=== PATIENT | male | born 1960 | race Caucasian/White ===

== ENCOUNTER 2021-11-30 17:06 | Emergency (ER) | payer MEDICARE, MEDICAID ==
[~2021-11-30] VITALS: Ht 165 cm; Wt 120.0 kg
[2021-11-30 17:10] VITALS: BP 130/112
[2021-11-30] MEDS ORDERED: ASPIRIN 81 MG CHEW (CHILDREN'S ASA) PO ONE (17:30)
--- NOTE | 2021-11-30 17:31 | ED Cardiac General ---
History of Present Illness General Chief Complaint: Cardiac/General Problems Stated Complaint: POSS HEART ATTACK Nursing Triage Note: SENT HERE FROM 'S OFFICE IN [place] CHEST PAIN SUNDAY. SEEN BY YESTERDAY AND BLOOD DRAWN. TODAY WAS TOLD TO COME TO THE ER DUE TO HIS TROPONIN BEING HIGH. Source: patient Exam Limitations: no limitations History of Present Illness Date Seen by Provider: Nov 30, 2021 Time Seen by Provider: 17:28 Initial Comments Patient is a 60-year-old male with a history of coronary artery disease, hypertension, diabetes who presents ED for evaluation for abnormal troponin. Patient was sent over from his primary care physician for troponin of over 4000. Cardiology was consulted Dr. Link. Patient states he had chest pressure on Sunday lasted for about 2 to 3 hours. That pain has not improved. Sunday he felt tired and fatigued but had no issues or concerns yesterday. Went to his primary care physician earlier this week had abnormal troponin around 4000. Patient has no current complaints. Denies of any current chest pain, shortness of breath, cough, nausea vomiting, diarrhea fever, chills.. Patient states he has been exerting himself without any pain or discomfort Allergies and Home Medications Allergies Coded Allergies: Sulfa (Sulfonamide Antibiotics) (Verified Allergy, Severe, RASH, 11/30/21) Patient Home Medication List Home Medication List Reviewed: Yes Review of Systems Review of Systems Constitutional: No chills, No diaphoresis, No fever, No malaise, No weakness EENTM: No Double Vision, No Eye Pain Respiratory: Denies Cough, Denies Orthopnea Cardiovascular: Chest Pain; Denies Edema Gastrointestinal: Denies Abdominal Pain, Denies Diarrhea, Denies Nausea, Denies Vomiting Genitourinary: Denies Burning, Denies Discharge Musculoskeletal: No back pain, No joint pain Skin: No change in color, No change in hair/nails All Other Systems Reviewed Negative Unless Noted: Yes Past Lxmdlpg-Byoqwu-Oczrin Hx Patient Social History Smoking Status: Never a Smoker Substance use?: No Alcohol Use?: No Physical Exam Vital Signs Vital Signs - First Documented 11/30/21 17:10 Temp 36.3 Pulse 83 Resp 16 B/P (MAP) 130/112 (118) Pulse Ox 97 O2 Delivery Room Air Capillary Refill : Less Than 3 Seconds Height, Weight, BMI Height: '" Weight: lbs. oz. kg; 44.00 BMI Method: General Appearance: No Apparent Distress, WD/WN HEENT: PERRL/EOMI, TMs Normal, Normal ENT Inspection, Pharynx Normal Neck: Full Range of Motion, Normal Inspection, Non Tender, Supple Respiratory: Chest Non Tender, Lungs Clear, Normal Breath Sounds, No Accessory Muscle Use, No Respiratory Distress Cardiovascular: Regular Rate, Rhythm, No Edema, No Gallop, No JVD Gastrointestinal: Normal Bowel Sounds, No Organomegaly, No Pulsatile Mass, Non Tender Extremity: Normal Capillary Refill, Normal Inspection, Normal Range of Motion, Non Tender Skin: Normal Color, Warm/Dry Progress/Results/Core Measures Results/Orders Lab Results Laboratory Tests Test 11/30/21 17:32 Range/Units White Blood Count 10.6 4.3-11.0 10^3/uL Red Blood Count 5.63 H 4.30-5.52 10^6/uL Hemoglobin 14.9 13.3-17.7 g/dL Hematocrit 47 40-54 % Mean Corpuscular Volume 83 80-99 fL Mean Corpuscular Hemoglobin 27 25-34 pg Mean Corpuscular Hemoglobin Concent 32 32-36 g/dL Red Cell Distribution Width 15.3 H 10.0-14.5 % Platelet Count 326 130-400 10^3/uL Mean Platelet Volume 10.4 9.0-12.2 fL Immature Granulocyte % (Auto) 0 % Neutrophils (%) (Auto) 61 42-75 % Lymphocytes (%) (Auto) 26 12-44 % Monocytes (%) (Auto) 12 0-12 % Eosinophils (%) (Auto) 1 0-10 % Basophils (%) (Auto) 0 0-10 % Neutrophils # (Auto) 6.5 1.8-7.8 10^3/uL Lymphocytes # (Auto) 2.8 1.0-4.0 10^3/uL Monocytes # (Auto) 1.2 H 0.0-1.0 10^3/uL Eosinophils # (Auto) 0.1 0.0-0.3 10^3/uL Basophils # (Auto) 0.0 0.0-0.1 10^3/uL Immature Granulocyte # (Auto) 0.0 0.0-0.1 10^3/uL Prothrombin Time 13.6 12.2-14.7 SEC INR Comment 1.0 0.8-1.4 Activated Partial Thromboplast Time 26 24-35 SEC Sodium Level 137 135-145 MMOL/L Potassium Level 4.0 3.6-5.0 MMOL/L Chloride Level 105 98-107 MMOL/L Carbon Dioxide Level 21 21-32 MMOL/L Anion Gap 11 5-14 MMOL/L Blood Urea Nitrogen 20 H 7-18 MG/DL Creatinine 0.95 0.60-1.30 MG/DL Estimat Glomerular Filtration Rate 92 BUN/Creatinine Ratio 21 Glucose Level 142 H 70-105 MG/DL Calcium Level 9.2 8.5-10.1 MG/DL Corrected Calcium 9.0 8.5-10.1 MG/DL Magnesium Level 2.1 1.6-2.4 MG/DL Total Bilirubin 1.1 H 0.1-1.0 MG/DL Aspartate Amino Transf (AST/SGOT) 17 5-34 U/L Alanine Aminotransferase (ALT/SGPT) 22 0-55 U/L Alkaline Phosphatase 53 40-136 U/L Myoglobin 34.6 10.0-92.0 NG/ML Troponin I 0.079 H <0.028 NG/ML B-Type Natriuretic Peptide 21.3 <100.0 PG/ML Total Protein 7.6 6.4-8.2 GM/DL Albumin 4.2 3.2-4.5 GM/DL My Orders Orders - DANIEL RANGEL PA Cbc With Automated Diff (11/30/21 17:27) Magnesium (11/30/21 17:27) Chest 1 View, Ap/Pa Only (11/30/21 17:27) Comprehensive Metabolic Panel (11/30/21 17:27) Myoglobin Serum (11/30/21 17:27) Protime With Inr (11/30/21 17:27) Partial Thromboplastin Time (11/30/21 17:27) Ed Iv/Invasive Line Start (11/30/21 17:27) Bnp Bosque (11/30/21 17:27) Troponin I Bosque (11/30/21 17:27) Aspirin Chewable Tablet (Baby Aspirin Ch (11/30/21 17:30) Medications Given in ED Current Medications Medications Dose Ordered Sig/Miryam Route Start Time Stop Time Status Last Admin Dose Admin Aspirin 324 mg ONCE ONCE PO 11/30/21 17:30 11/30/21 17:31 DC 11/30/21 17:54 243 MG Vital Signs/I&O 11/30/21 11/30/21 17:10 18:35 Temp 36.3 Pulse 83 Resp 16 B/P (MAP) 130/112 (118) Pulse Ox 97 O2 Delivery Room Air Room Air Blood Pressure Mean: 118 Comment Sinus rhythm with frequent supraventricular premature complexes, 86 bpm, QRS duration 92 MS, QTc 377 MS Departure Communication (PCP) Patient with a NSTEMI. EKG without evidence of ST elevation or pression. Troponin 0.79. He has been asymptomatic since Sunday. Discussed patient with cardiology recommend aspirin and Lovenox. Discussed these results with patient. He is requesting to be discharged and refused admission. Discussed with patient likely had a cardiac event and could potentially lead to a larger event resulting in cardiac . Patient acknowledges. Discussed risk of leaving AMA. Patient acknowledges. Concern due to patient current cardiac history that admission and cardiac work-up would need to be warranted. Patient states he will follow-up with his primary care physician. Patient does have sublingual nitro for angina. Patient is currently on Plavix and baby aspirin daily. Currently on atorvastatin and blood pressure medication. Discussed this with and agrees with this plan of action. Patient was discussed with Dr. Link who recommended admission. Patient's had cardiac stents placed by [facility] administrator in [place]. Outpatient follow-up with cardiology Impression Primary Impression: NSTEMI (non-ST elevated myocardial infarction) Disposition: AGAINST MEDICAL ADVICE Condition: Stable/Unchanged Departure-Patient Inst. Decision time for Depature: 18:26 Referrals: [facility]/ZACH NEWSOME MD NO,LOCAL PHYSICIAN (PCP) Primary Care Physician Patient Instructions: Chest Pain (DC) Add. Discharge Instructions: Recommend staying in the hospital. If any worsening symptoms strong recommend return back to ED for further evaluation All discharge instructions reviewed with patient and/or family. Voiced understanding. DANIEL RANGEL Nov 30, 2021 17:31
[2021-11-30 17:42] LABS: BASOPHILS % (AUTO) 0 % (0-10); EOSINOPHILS # (AUTO) 0.1 10^3/uL (0.0-0.3); EOSINOPHILS % (AUTO) 1 % (0-10); HEMATOCRIT 47 % (40-54); HEMOGLOBIN 14.9 g/dL (13.3-17.7); LYMPHOCYTES # (AUTO) 2.8 10^3/uL (1.0-4.0); LYMPHOCYTES % (AUTO) 26 % (12-44); MEAN CORPUSCULAR HEMOGLOBIN 27 pg (25-34); MEAN CORPUSCULAR HGB CONC 32 g/dL (32-36); MEAN CORPUSCULAR VOLUME 83 fL (80-99); MEAN PLATELET VOLUME 10.4 fL (9.0-12.2); MONOCYTES # (AUTO) 1.2 10^3/uL (0.0-1.0); MONOCYTES % (AUTO) 12 % (0-12); NEUTROPHILS # (AUTO) 6.5 10^3/uL (1.8-7.8); NEUTROPHILS % (AUTO) 61 % (42-75); PLATELET COUNT 326 10^3/uL (130-400); WHITE BLOOD COUNT 10.6 10^3/uL (4.3-11.0)
--- NOTE | 2021-11-30 17:43 | Diagnostic Imaging Report ---
EXAMINATION: Chest, one view. HISTORY: Chest pain. COMPARISON: None available. FINDINGS: Heart is mildly enlarged, and there is mild edema. No pleural effusion or pneumothorax. No pneumonia. IMPRESSION: 1. Mildly enlarged heart and mild edema. Dictated by: Dictated on workstation # [id number]
[2021-11-30 17:54] LABS: PROTHROMBIN TIME PATIENT 13.6 SEC (12.2-14.7)
[2021-11-30 17:57] LABS: ALBUMIN 4.2 GM/DL (3.2-4.5)
[2021-11-30 17:59] LABS: CALCIUM 9.2 MG/DL (8.5-10.1)
[2021-11-30 18:00] LABS: TOTAL PROTEIN 7.6 GM/DL (6.4-8.2)
[2021-11-30 18:02] LABS: BILIRUBIN,TOTAL 1.1 MG/DL (0.1-1.0)
[2021-11-30 18:04] LABS: CREATININE SERUM 0.95 MG/DL (0.60-1.30)
[2021-11-30 18:06] LABS: MAGNESIUM 2.1 MG/DL (1.6-2.4)
[2021-11-30] MEDS ORDERED: ENOXAPARIN 100 MG/1 ML (LOVENOX) SYR SC SCH (18:30)
[2021-11-30] MEDS ORDERED: ENOXAPARIN 120 MG/0.8 ML (LOVENOX) SQ SCH (19:00)
== END 2021-11-30 18:30 | disposition left against medical advice (07) ==
LOC: EDUNIT# 17:06 → ER 17:11
DX: I21.4 Non-ST elevation (NSTEMI) myocardial infarction (principal); Z79.02 Long term (current) use of antithrombotics/antiplatelets; Z79.82 Long term (current) use of aspirin; Z28.310 Unvaccinated for COVID-19
CPT/HCPCS: 36415; 71045; 80053; 83735; 83874; 83880; 84484; 85025; 85610; 85730; 93005

== ENCOUNTER → 2021-12-02 | Outpatient (CLI) | payer MEDICARE, MEDICAID | LOC: LAB FS 11:41 | PROVIDERS: ATTEND Nurse Practitioner Family | DX: R77.8 Other specified abnormalities of plasma proteins (principal) | CPT/HCPCS: 36415; 84484 ==

== ENCOUNTER → 2021-12-29 | Outpatient (CLI) | payer MEDICARE, MEDICAID | LOC: CARDFS 10:21 | PROVIDERS: ATTEND Internal Medicine Cardiovascular Disease | DX: I25.118 Atherosclerotic heart disease of native coronary artery with other forms of angina pectoris (principal); I51.7 Cardiomegaly | CPT/HCPCS: 93306 ==

== ENCOUNTER → 2022-01-26 | Outpatient (CLI) | payer MEDICARE, MEDICAID ==
[~2022-01-26] VITALS: Ht 175 cm; Wt 122.0 kg
[~2022-01-26] MED LIST: CATHETER FLUSH 10 ML SYR IVP PRN; REGADENOSON 0.4 MG/5 ML SYR (LEXISCAN) IV ONE
[2022-01-26 09:23] VITALS: BP 135/89
--- NOTE | 2022-01-27 17:12 | NUCLEAR STRESS TEST ---
REGADENOSON NUCLEAR STRESS Date of procedure: 01/26/2022. Primary care provider: Tracy Jiménez APRN Admitting physician: Oracio Bailon Jr., MD. INDICATION: Coronary artery disease with angina pectoris. BASELINE ELECTROCARDIOGRAM: Sinus rhythm with low voltage in the precordial leads, early transition and nonspecific T wave changes. STRESS TEST PROCEDURE: The patient was administered 0.4 mg of intravenous Regadenoson. The resting heart rate was 67 bpm and the peak heart rate was 90 bpm. The resting blood pressure was 135/89 mmHg and the minimum blood pressure was 107/80 mmHg. This represents a normal heart rate and a normal blood pressure response to Regadenoson. The test was stopped due to the protocol. There was no chest discomfort during the test. There were isolated premature ventricular complexes during the test. There were no significant stress induced electrocardiogram changes. NUCLEAR PROCEDURE: The patient was administered 10.6 mCi of intravenous technetium 99m Tetrofosmin at rest for the rest images. The patient was subsequently administered 31 mCi of intravenous technetium 99m Tetrofosmin at peak stress for the stress images. Following an appropriate wait after each injection, imaging was obtained. The images were subsequently processed and reformatted in the usual views. Gated imaging was obtained. The image quality was adequate with a significant amount of gastrointestinal attenuation artifact. CT attenuation correction was used as a adjunct to standard imaging. Both the corrected and uncorrected images were reviewed for interpretation. NUCLEAR RESULTS: There was a moderate sized, severe intensity, partially reversible distal lateral and apical defect with a small amount of inducible ischemia with a summed stress score of 7 and a summed difference score of 3. There was normal left ventricular chamber size with an end-diastolic volume of 74 mL and an end-systolic volume of 39 mL. There was no evidence of transient ischemic dilatation. The TID ratio was 1.07. There was apical hypokinesis and overall mild left ventricular systolic dysfunction with a calculated ejection fraction of 48%. IMPRESSION: 1. Normal heart rate and blood pressure response to regadenoson. 2. There was no chest discomfort or electrocardiogram changes during the test. 3. There were isolated premature ventricular complexes during the test. 4. There was a moderate sized, severe intensity, partially reversible distal lateral and apical defect with a small amount of inducible ischemia with a summed stress score of 7 and a summed difference score of 3. 5. There was apical hypokinesis and overall mild left ventricular systolic dysfunction with a calculated ejection fraction of 48%. 6. This is an abnormal result representing an overall moderate risk for possible future coronary ischemic events in light of the single-vessel zone of mild ischemia but with a depressed ejection fraction. Certain portions of this document may have been dictated utilizing voice recognition technology. Inherent to this technology, typographical and grammatical errors may exist. As much as I am diligent to identify and correct these mistakes, some errors may remain in the document. ORACIO BAILON JR, MD Jan 27, 2022 17:12
== END ==
LOC: CARD 08:30
PROVIDERS: ATTEND Internal Medicine Cardiovascular Disease
DX: I25.118 Atherosclerotic heart disease of native coronary artery with other forms of angina pectoris (principal)
CPT/HCPCS: 78452; 93017; A9502

== ENCOUNTER → 2022-02-06 | Outpatient (CLI) | payer MEDICARE, MEDICAID ==
[~2022-02-06] MED LIST changes: +ACET325T38 PO; +AMLO-251 PO; +ASPI-1238 PO; +ATOR40TA70 PO; +BACL10TA PO; -CATHETER FLUSH 10 ML SYR IVP PRN; +CLOP75TA28 PO; +DAPA10TA PO; +DOXY1TAB2 PO; +FAMO20TA5 PO; +FLUT9.9S NS; +HYDR-3820 PO; +ISOS60TA63 PO; +LEVO137T40 PO; +LISI40TA9 PO; +METF-397 PO; +MULT-851 PO; +NITR0.3T7 PO; +PREG50CA65 PO; -REGADENOSON 0.4 MG/5 ML SYR (LEXISCAN) IV ONE; +RT-ALBUINH IH; +VENL150C98 PO; +VENL75CA93 PO
[2022-02-06 08:12] LABS: BASOPHILS # (AUTO) 0.1 10^3/uL (0.0-0.1); BASOPHILS % (AUTO) 1 % (0-10); EOSINOPHILS # (AUTO) 0.5 10^3/uL (0.0-0.3); EOSINOPHILS % (AUTO) 7 % (0-10); HEMATOCRIT 45 % (40-54); HEMOGLOBIN 14.9 g/dL (13.3-17.7); LYMPHOCYTES # (AUTO) 2.1 10^3/uL (1.0-4.0); LYMPHOCYTES % (AUTO) 28 % (12-44); MEAN CORPUSCULAR HEMOGLOBIN 27 pg (25-34); MEAN CORPUSCULAR HGB CONC 33 g/dL (32-36); MEAN CORPUSCULAR VOLUME 81 fL (80-99); MEAN PLATELET VOLUME 9.4 fL (9.0-12.2); MONOCYTES # (AUTO) 0.7 10^3/uL (0.0-1.0); MONOCYTES % (AUTO) 9 % (0-12); NEUTROPHILS # (AUTO) 4.2 10^3/uL (1.8-7.8); NEUTROPHILS % (AUTO) 55 % (42-75); PLATELET COUNT 291 10^3/uL (130-400); WHITE BLOOD COUNT 7.6 10^3/uL (4.3-11.0)
[2022-02-06 09:10] LABS: POTASSIUM 4.1 MMOL/L (3.6-5.0)
[2022-02-06 09:11] LABS: CALCIUM 9.3 MG/DL (8.5-10.1); CREATININE SERUM 0.72 MG/DL (0.60-1.30)
[2022-02-06 09:47] LABS: INR 0.9 (0.8-1.4); PROTHROMBIN TIME PATIENT 12.4 SEC (12.2-14.7)
== END ==
LOC: LAB FS 07:50
PROVIDERS: ATTEND Internal Medicine Cardiovascular Disease
DX: Z01.812 Encounter for preprocedural laboratory examination (principal); I25.118 Atherosclerotic heart disease of native coronary artery with other forms of angina pectoris
CPT/HCPCS: 36415; 80048; 85025; 85610

== ENCOUNTER 2022-02-09 08:04 | Observation (INO) | payer MEDICARE, MEDICAID ==
[~2022-02-09] VITALS: Ht 175.3 cm; Wt 123.3 kg
[2022-02-09] VITALS (12 sets, daily range): BP systolic 104–135; BP diastolic 68–100
[2022-02-09] MEDS ORDERED: LIDOCAINE 1% INJ 30 ML (XYLOCAINE) VIAL ONE (08:13)
[2022-02-09] MEDS ORDERED: NS IV 1000 ML 1,000 ML ONE (08:13)
[2022-02-09] MEDS ORDERED: HEParin (CATH LAB) 2,000 ML IV ONE (08:13)
[2022-02-09] MEDS ORDERED: ASPIRIN 81 MG CHEW (CHILDREN'S ASA) PO ONE (08:15)
[2022-02-09] MEDS ORDERED: NS IV 1000 ML 1,000 ML IV ONE (08:15)
[2022-02-09] MEDS ORDERED: CATHETER FLUSH 10 ML SYR IV PRN (08:15)
[2022-02-09] MEDS ORDERED: VENL75CA93 PO (09:13)
[2022-02-09] MEDS ORDERED: ATOR40TA70 PO (09:13)
[2022-02-09] MEDS ORDERED: LISI40TA9 PO (09:13)
[2022-02-09] MEDS ORDERED: ACET325T38 PO (09:13)
[2022-02-09] MEDS ORDERED: ISOS60TA63 PO (09:13)
[2022-02-09] MEDS ORDERED: METF-397 PO (09:13)
[2022-02-09] MEDS ORDERED: PREG50CA65 PO (09:13)
[2022-02-09] MEDS ORDERED: BACL10TA PO (09:13)
[2022-02-09] MEDS ORDERED: DAPA10TA PO (09:13)
[2022-02-09] MEDS ORDERED: MULT-851 PO (09:13)
[2022-02-09] MEDS ORDERED: DOXY1TAB2 PO (09:13)
[2022-02-09] MEDS ORDERED: FAMO20TA5 PO (09:13)
[2022-02-09] MEDS ORDERED: FLUT9.9S NS (09:13)
[2022-02-09] MEDS ORDERED: CLOP75TA28 PO ×2 (09:13→12:22)
[2022-02-09] MEDS ORDERED: HYDR-3820 PO (09:13)
[2022-02-09] MEDS ORDERED: AMLO-251 PO (09:13)
[2022-02-09] MEDS ORDERED: RT-ALBUINH IH (09:13)
[2022-02-09] MEDS ORDERED: VENL150C98 PO (09:13)
[2022-02-09] MEDS ORDERED: LEVO137T40 PO (09:13)
[2022-02-09] MEDS ORDERED: ASPI-1238 PO (09:13)
[2022-02-09] MEDS ORDERED: NITR0.3T7 PO (09:13)
--- NOTE | 2022-02-09 09:15 | Pre-Op Note & Conscious Sedat ---
Pre-Operative Progress Note Date H&P Reviewed: Feb 09, 2022 Time H&P Reviewed: 09:12 History & Physical: H&P Reviewed, Patient Examed, No changes noted Changes from last HP Since his previous visit in my office on 01/24/2022, he went underwent a nuclear stress test which showed a moderate sized distal lateral and apical defect with a small amount of inducible ischemia with an ejection fraction of 48%. This is considered at least a moderate risk for future cardiac events and because of this, he has been scheduled for a cardiac catheterization. Otherwise, no changes from above. Pre-Op Diagnosis: Coronary artery disease without angina and abnormal stress test Conscious Sedation Pre-Proced ASA Score 2 For ASA 3 and 4: Consider anesthesia and medical clearance. Also, for patients with a history of failed moderate sedation consider anesthesia. Airway Lungs Heart ASA score ASA 1: a normal healthy patient ASA 2: a patient with a mild systemic disease (mid diabetes, controlled hypertension, obesity ASA 3: a patient with a severe systemic disease that limits activity (angina, COPD, prior Myocardial infarction) ASA 4: a patient with an incapacitating disease that is a constant threat to life (CHF, renal failure) ASA 5: a moribund patient not expected to survive 24 hrs. (ruptured aneurysm) ASA 6: a declared brain- patient whose organs are being harvested. For emergent operations, add the letter E after the classification Mallampati Classification Grade 2 Sedation Plan Analgesia, Amnesia, Plan communicated to team members, Discussed options with patient/fam, Discussed risks with patient/fam The patient is an appropriate candidate to undergo the planned procedure, sedation, and anesthesia. The patient immediately re-assessed prior to indication. Given his current clinical status, he is considered vulnerable. He does not have any history of heart failure. CIPRIANO NICOLAS JR, MD Feb 09, 2022 09:15
[2022-02-09] MEDS ORDERED: fentaNYL INJ 100 MCG/2 ML AMP ONE (09:25)
[2022-02-09] MEDS ORDERED: VERAPAMIL 5 MG/2 ML (CALAN) VIAL IV ONE (09:25)
[2022-02-09] MEDS ORDERED: MIDAZOLAM 5 MG/5 ML (VERSED) VIAL ONE (09:25)
[2022-02-09] MEDS ORDERED: HEParin 1000 UNIT/ML (10ML VIAL) FOR BOLUS ONE (09:25)
[2022-02-09] MEDS ORDERED: NITRO DRIP 25000 MCG/D5W 250 ML IV ONE (09:26)
[2022-02-09] MEDS ORDERED: CLOPIDOGREL 300 MG (PLAVIX) TABLET PO ONE (10:10)
--- NOTE | 2022-02-09 10:59 | Cardiac Cath Report ---
CARDIAC CATHETERIZATION DATE OF PROCEDURE: 02/09/2022 INDICATION: Coronary artery disease with angina pectoris, abnormal nuclear stress test and ischemic cardiomyopathy. HISTORY: The patient is a 61 year old male with a known history of coronary artery disease with previous stents at an outside hospital in around 2012. He has stents in the distal left anterior descending coronary artery, the first obtuse marginal branch, and a left posterolateral branch. He had been in the emergency room approximately 1 month ago with some chest pain. During his evaluation he was found to have an elevated troponin level. However, unfortunately, the patient left the emergency room AGAINST MEDICAL ADVICE. He then came to my office for an evaluation and I had him undergo a nuclear stress test that showed a moderate sized, partially reversible distal lateral and apical defect with a small amount of inducible ischemia and an ejection fraction of 48%. He has had some ongoing intermittent chest discomfort. Because of these findings and his clinical status, he is referred for a cardiac catheterization. Based upon his current clinical status, he is considered vulnerable. He has no history of heart failure. PROCEDURES PERFORMED: 1. Left heart catheterization with hemodynamic measurements. 2. Diagnostic [place] coronary angiography. 3. Attempted percutaneous coronary intervention of the proximal right coronary artery. The procedure was aborted because the stenosis could not be crossed. 3. Drug-eluting stent placement to the left posterolateral branch (distal left circumflex coronary artery) for in-stent restenosis at the distal edge of a previously placed stent. PROCEDURE DESCRIPTION: After informed consent and in the fasting state, left heart catheterization was performed through the right radial artery utilizing a 6 Salvadorean system by percutaneous approach. Standard 5 Salvadorean Maddy catheters were utilized for the diagnostic portion of the procedure. A 6 Salvadorean JR4 catheter was utilized for the attempted intervention on the right coronary artery. A 6 Salvadorean CLS4 guide catheter was utilized for the intervention on the left posterolateral branch. All catheters were exchanged over a guidewire. Following the procedure, a vascular band was applied to the radial artery access site and the sheath was removed with good hemostasis. RESULTS: HEMODYNAMICS: The aortic pressure was 100/74 mmHg. The left ventricular pressure was 125/0 mmHg with a left ventricular end-diastolic pressure of 9 mmHg. There was no significant pressure gradient upon pullback across the aortic valve. CORONARY ANGIOGRAPHY: Left main coronary artery: Free of significant disease. Left anterior descending coronary artery: There was a 50% stenosis in the midsegment just proximal to the takeoff of the second diagonal branch with JACOBY- 3 flow. There was a stent in the distal segment which was widely patent. About 30 mm beyond the stent, the vessel tapered and there was a 99% stenosis with JACOBY-1 flow. The apical portion of the vessel appeared to have another 99% stenosis versus a chronic total occlusion with bridging collaterals and left to left collaterals with JACOBY-1 flow. There was a very high first diagonal branch which had a stent that was widely patent. Left circumflex coronary artery: Codominant and very large in caliber with delayed flow throughout the proximal and mid segments of the vessel but othe rwise free of significant disease. There was a stent in a left posterolateral branch that was patent but there was a 99% stenosis at the distal edge of the stent consistent with in-stent restenosis and this had JACOBY-1 flow. This branch supplied the ischemic territory noted on his stress test. Right coronary artery: Codominant and totally occluded proximally with JACOBY-0 flow. There were faint [id number] collaterals seen filling the distal branches. ATTEMPTED PERCUTANEOUS CORONARY INTERVENTION OF RIGHT CORONARY ARTERY: Percutaneous coronary intervention was attempted on the right coronary artery through a 6 Salvadorean JR4 guide catheter. I first attempted to cross the stenosis with a Whisper extra-support guidewire but was not successful. I parked this w leonardo in a sidebranch. I then attempted to cross the stenosis with a Choice PT guidewire but this wire would also not crossed through the stenosis. At that point, I concluded that this was most likely a chronic total occlusion and I aborted any further attempts at opening this vessel. PERCUTANEOUS CORONARY INTERVENTION OF LEFT POSTEROLATERAL BRANCH (DISTAL LEFT CIRCUMFLEX CORONARY ARTERY): Percutaneous coronary intervention was carried out on the left circumflex coronary artery through a 6 Salvadorean CLS4 guide catheter. I first crossed the stenosis with the same Whisper extra-support guidewire. I subsequently performed angioplasty with a 2.5 x 12 mm Trek balloon at a pressure of 10 teagan. Flow was improved. I subsequently deployed a 2.75 x 23 mm drug-eluting Xience Skypoint stent overlapping the previously placed stent at a pressure of 16 teagan. I then postdilated the stent and the overlapped segment with a 2.75 x 20 mm noncompliant Trek balloon at a pressure of 16 teagan. Following stent placement, there was 0% residual stenosis with JACOBY-3 flow. IMPRESSION: 1. Normal left heart pressures. 2. Patent stents in the mid left anterior descending coronary artery, a high first diagonal branch and a left posterolateral branch. However, there was a significant stenosis at the distal edge of the stent in the left posterolateral branch consistent with in-stent restenosis and this was supplying the ischemic area noted on his stress test. 3. 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 4. There was severe disease of the distal left anterior descending coronary artery beyond the previously placed stent. 5. Status post unsuccessful attempt at percutaneous intervention of the right coronary artery. 2 different guidewires were used but I was still not able to cross the stenosis. I then aborted the attempt at revascularization of the right coronary artery. 6. Status post drug-eluting stent placement to the left posterolateral branch with a 2.75 x 23 mm Xience Skypoint stent postdilated with a 2.75 mm no ncompliant balloon with 0% residual stenosis and JACOBY-3 flow. 7. The patient is known to have mild left ventricular systolic dysfunction with a calculated ejection fraction of 48% by nuclear stress test that was performed on 01/26/2022. 8. I will consider percutaneous coronary intervention of the distal left anterior descending coronary artery as a staged procedure if the patient continues to have angina following discharge. Certain portions of this document may have been dictated utilizing voice recogni tion technology. Inherent to this technology, typographical and grammatical errors may exist. As much as I am diligent to identify and correct these mistakes, some errors may remain in the document. CIPRIANO NICOLAS JR, MD Feb 09, 2022 10:59
[2022-02-09] MEDS ORDERED: NS IV 1000 ML 1,000 ML IV SCH (11:00)
[2022-02-10] MEDS ORDERED: CLOPIDOGREL 75 MG (PLAVIX) TABLET PO SCH (09:00)
== END 2022-02-09 15:50 | disposition home or self-care (01) ==
LOC: CATH 08:04 → CSD 11:21 → UNDODISOB 15:50
PROVIDERS: ADMIT Internal Medicine Cardiovascular Disease; ATTEND Internal Medicine Cardiovascular Disease
DX: I25.119 Atherosclerotic heart disease of native coronary artery with unspecified angina pectoris (principal); I25.5 Ischemic cardiomyopathy; Z87.891 Personal history of nicotine dependence; I10 Essential (primary) hypertension; E78.2 Mixed hyperlipidemia; E11.9 Type 2 diabetes mellitus without complications; E03.9 Hypothyroidism, unspecified; E66.01 Morbid (severe) obesity due to excess calories; Z68.41 Body mass index [BMI] 40.0-44.9, adult; J81.1 Chronic pulmonary edema; I71.20 Thoracic aortic aneurysm, without rupture, unspecified
CPT/HCPCS: 87081; 92920; 93005; 93458; C1725 ×2; C1769 ×2; C1874; C1887 ×2; C1894; C9600

== ENCOUNTER → 2022-03-22 | Outpatient (CLI) | payer MEDICARE, MEDICAID ==
[~2022-03-22] MED LIST changes: +ALBU8.5H6 IH; -RT-ALBUINH IH
[2022-03-22 10:09] LABS: BILIRUBIN,TOTAL 0.8 MG/DL (0.1-1.0); CALCIUM 8.9 MG/DL (8.5-10.1); CREATININE SERUM 0.78 MG/DL (0.60-1.30); POTASSIUM 4.2 MMOL/L (3.6-5.0); TOTAL PROTEIN 7.2 GM/DL (6.4-8.2)
== END ==
LOC: LAB FS 08:11
PROVIDERS: ATTEND Internal Medicine Cardiovascular Disease
DX: I10 Essential (primary) hypertension (principal); I25.118 Atherosclerotic heart disease of native coronary artery with other forms of angina pectoris; I71.21 Aneurysm of the ascending aorta, without rupture; E78.2 Mixed hyperlipidemia; E11.59 Type 2 diabetes mellitus with other circulatory complications; E03.9 Hypothyroidism, unspecified; E66.01 Morbid (severe) obesity due to excess calories
CPT/HCPCS: 36415; 80053; 80061

== ENCOUNTER → 2022-04-05 | Outpatient (RCR) | payer MEDICARE, MEDICAID | END | disposition home or self-care (01) | LOC: CR 08:55 | PROVIDERS: ATTEND Internal Medicine Cardiovascular Disease | DX: Z29.8 Encounter for other specified prophylactic measures (principal); I25.118 Atherosclerotic heart disease of native coronary artery with other forms of angina pectoris | CPT/HCPCS: 93798 ==

== ENCOUNTER → 2022-04-06 | Outpatient (CLI) | payer MEDICARE, MEDICAID ==
--- NOTE | 2022-04-06 15:38 | Diagnostic Imaging Report ---
INDICATION: Pain EXAMINATION: Left ankle 04/06/2022. FINDINGS: 3 views of the ankle There is plantar and posterior calcaneal spurring. Degenerative findings seen about the ankle with no fractures or dislocations. There is a vague lucency along the medial aspect of the talar dome possibly a developing osteochondral defect versus subchondral cyst associated with degenerative disease. No fractures or dislocations appreciated. IMPRESSION: 1. Chronic findings as above. 2. Vague lucency in the medial talar dome possibly an osteochondral defect versus a subchondral cyst secondary to degenerative findings. If ankle pain persists, MRI could provide further characterization, as clinically indicated. Dictated by: Dictated on workstation # [id number]
== END ==
LOC: RAD FS 14:25
PROVIDERS: ATTEND Nurse Practitioner Family
DX: M25.572 Pain in left ankle and joints of left foot (principal)
CPT/HCPCS: 73610

== ENCOUNTER 2022-04-24 10:50 | Outpatient (RCR) | payer MEDICARE, MEDICAID | END 2022-05-06 | disposition home or self-care (01) | LOC: CR 10:50 | PROVIDERS: ATTEND Internal Medicine Cardiovascular Disease | DX: Z29.8 Encounter for other specified prophylactic measures (principal); I25.118 Atherosclerotic heart disease of native coronary artery with other forms of angina pectoris; Z95.5 Presence of coronary angioplasty implant and graft | CPT/HCPCS: 93798 ==

== ENCOUNTER → 2022-05-03 | Outpatient (CLI) | payer MEDICARE, MEDICAID ==
[2022-05-03 10:01] LABS: BILIRUBIN,TOTAL 0.7 MG/DL (0.1-1.0); CALCIUM 9.2 MG/DL (8.5-10.1); CREATININE SERUM 0.65 MG/DL (0.60-1.30); POTASSIUM 3.9 MMOL/L (3.6-5.0)
[2022-05-03 10:02] LABS: ALBUMIN 4.1 GM/DL (3.2-4.5); TOTAL PROTEIN 7.1 GM/DL (6.4-8.2)
== END ==
LOC: LAB FS 08:38
PROVIDERS: ATTEND Internal Medicine Cardiovascular Disease
DX: E78.2 Mixed hyperlipidemia (principal)
CPT/HCPCS: 36415; 80053; 80061

== ENCOUNTER 2022-05-12 09:54 | Outpatient (RCR) | payer MEDICARE, MEDICAID | END 2022-06-06 | disposition home or self-care (01) | LOC: CR 09:54 | PROVIDERS: ATTEND Internal Medicine Cardiovascular Disease | DX: Z29.8 Encounter for other specified prophylactic measures (principal); I25.118 Atherosclerotic heart disease of native coronary artery with other forms of angina pectoris | CPT/HCPCS: 93798 ==

== ENCOUNTER 2022-06-07 06:44 | Outpatient (RCR) | payer MEDICARE, MEDICAID | END 2022-07-04 | disposition home or self-care (01) | LOC: CR 06:44 | PROVIDERS: ATTEND Internal Medicine Cardiovascular Disease | DX: Z29.8 Encounter for other specified prophylactic measures (principal); I25.118 Atherosclerotic heart disease of native coronary artery with other forms of angina pectoris ==

== ENCOUNTER → 2022-06-15 | Outpatient (CLI) | payer MEDICARE, MEDICAID ==
[2022-06-15 10:06] LABS: POTASSIUM 4.5 MMOL/L (3.6-5.0)
[2022-06-15 10:07] LABS: ALBUMIN 4.1 GM/DL (3.2-4.5); BILIRUBIN,TOTAL 0.7 MG/DL (0.1-1.0); CALCIUM 9.6 MG/DL (8.5-10.1); CREATININE SERUM 0.72 MG/DL (0.60-1.30); TOTAL PROTEIN 7.3 GM/DL (6.4-8.2)
== END ==
LOC: LAB FS 08:13
PROVIDERS: ATTEND Internal Medicine Cardiovascular Disease
DX: E78.2 Mixed hyperlipidemia (principal)
CPT/HCPCS: 36415; 80053; 80061

== ENCOUNTER → 2022-10-11 | Outpatient (CLI) | payer OTHER, MEDICAID ==
[~2022-10-11] MED LIST changes: +RT-ALBUTEROL SULF 2.5 MG/3 ML PRE-MIX VIAL INH ONE
== END ==
LOC: RT 10:20
PROVIDERS: ATTEND Nurse Practitioner Family
DX: R93.89 Abnormal findings on diagnostic imaging of other specified body structures (principal)
CPT/HCPCS: 94060; 94726; 94729